=== PATIENT | male | born 1995 | race African-American/Black ===

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

== ENCOUNTER 2017-01-16 12:09 | Inpatient (IN) | payer BC, MEDICAID ==
[~2017-01-16] VITALS: Ht 172.7 cm; Wt 86.4 kg
[~2017-01-16 12:09] MED LIST: OLAN5TAB40 PO
[2017-01-16 12:37] LABS: BASOPHILS # (AUTO) 0.02 K/uL (0.00-0.20); BASOPHILS % (AUTO) 0.2 % (0.0-2.0); EOSINOPHILS # (AUTO) 0.03 K/uL (0.00-0.70); EOSINOPHILS % (AUTO) 0.31 % (1.0-6.0); HEMATOCRIT 46.7 % (41-53); LYMPHOCYTES # (AUTO) 0.7 K/uL (1.0-4.8); LYMPHOCYTES % (AUTO) 7.2 % (22.0-44.0); MEAN CORPUSCULAR HEMOGLOBIN 31.7 pg (26.0-34.0); MEAN CORPUSCULAR HGB CONC 34.2 G/dL (31.0-37.0); MEAN CORPUSCULAR VOLUME 93 fL (80-100); MONOCYTES # (AUTO) 0.4 K/uL (0.1-1.0); MONOCYTES % (AUTO) 4.1 % (2.0-9.0); NEUTROPHILS # (AUTO) 8.1 K/uL (1.8-7.7); PLATELET COUNT (AUTO) 272 K/uL (150-450); RED BLOOD CELL COUNT(AUTO) 5.04 MIL/uL (4.50-5.90); WHITE BLOOD COUNT (AUTO) 9.2 K/uL (4.5-11.0)
[2017-01-16 12:38] LABS: NEUTROPHILS % (AUTO) 88.2 % (40.0-70.0)
[2017-01-16] MEDS ORDERED: PERTUSS(ACELL),DIPH,TET VAC/PF 0.5 ML VIAL IM ONE (12:45)
[2017-01-16 12:49] LABS: ANION GAP 12 mmol/L (8-16); CALCIUM, TOTAL 8.9 mg/dL (8.8-10.5); CARBON DIOXIDE 24 mmol/L (22-29); CHLORIDE 101 mmol/L (98-107); CREATININE 1.07 mg/dL (0.60-1.30); GLOMERULAR FILTR. RATE CALC > 60 mL/min (>60); POTASSIUM 3.6 mmol/L (3.5-5.1); SODIUM SERUM 137 mmol/L (136-145); UREA NITROGEN, BLOOD 8 mg/dL (7-18)
[2017-01-16 12:54] LABS: ALANINE AMINOTRANSFERASE 29 U/L (12-78); ASPARTATE AMINOTRANSFERASE 30 U/L (15-37); BILIRUBIN,TOTAL 0.7 mg/dL (0.1-1.0)
[2017-01-16] MEDS ORDERED: HALOPERIDOL 5 MG TABLET PO PRN (13:15)
[2017-01-16] MEDS ORDERED: LORazepam 2 MG TABLET PO PRN (13:15)
[2017-01-16] MEDS ORDERED: ZOLPIDEM TARTRATE 10 MG TABLET PO PRN (13:15)
[2017-01-16 16:11] VITALS: BP 125/85
[2017-01-16] MEDS: OLANZapine 5 MG RAPDIS TABLET PO SCH (17:59)
[2017-01-17 07:07] VITALS: BP 123/80
[2017-01-17 08:21] LABS: BASOPHILS % (AUTO) 0.5 % (0.0-2.0); EOSINOPHILS % (AUTO) 1.3 % (1.0-6.0); HEMOGLOBIN 15.9 g/dL (13.5-17.5); LYMPHOCYTES # (AUTO) 0.8 K/uL (1.0-4.8); LYMPHOCYTES % (AUTO) 13.5 % (22.0-44.0); MEAN CORPUSCULAR HGB CONC 34.7 G/dL (31.0-37.0); MEAN CORPUSCULAR VOLUME 92 fL (80-100); MONOCYTES # (AUTO) 0.4 K/uL (0.1-1.0); MONOCYTES % (AUTO) 6.6 % (2.0-9.0); NEUTROPHILS # (AUTO) 4.9 K/uL (1.8-7.7); NEUTROPHILS % (AUTO) 78.1 % (40.0-70.0); PLATELET COUNT (AUTO) 276 K/uL (150-450); RED BLOOD CELL COUNT(AUTO) 4.99 MIL/uL (4.50-5.90); RED CELL DISTRIBUTION WIDTH 12.9 % (11.5-14.5); WHITE BLOOD COUNT (AUTO) 6.2 K/uL (4.5-11.0)
[2017-01-17 08:33] VITALS: BP 119/78
[2017-01-17 08:49] LABS: ALANINE AMINOTRANSFERASE 31 U/L (12-78); ALBUMIN 3.8 g/dL (3.4-5.0); ANION GAP 5 mmol/L (8-16); ASPARTATE AMINOTRANSFERASE 34 U/L (15-37); BILIRUBIN,TOTAL 1.2 mg/dL (0.1-1.0); CALCIUM, TOTAL 8.9 mg/dL (8.8-10.5); CARBON DIOXIDE 32 mmol/L (22-29); CHLORIDE 105 mmol/L (98-107); CREATININE 1.02 mg/dL (0.60-1.30); GLOMERULAR FILTR. RATE CALC > 60 mL/min (>60); POTASSIUM 4.5 mmol/L (3.5-5.1); SODIUM SERUM 142 mmol/L (136-145); THYROID STIMULATING HORMONE 0.37 uIU/mL (0.36-3.74); TOTAL PROTEIN, SERUM 6.5 g/dL (6.4-8.2); UREA NITROGEN, BLOOD 7 mg/dL (7-18)
[2017-01-17] MEDS: OLANZapine 5 MG RAPDIS TABLET PO SCH ×2 (09:00→16:50)
[2017-01-17] MEDS: BACITRACIN 28.4 GM OINTMENT TP SCH ×2 (09:00→16:50)
[2017-01-17 16:00] VITALS: BP 116/68
[2017-01-18 06:51] VITALS: BP 121/69
[2017-01-18 08:26] VITALS: BP 115/62
[2017-01-18] MEDS: BACITRACIN 28.4 GM OINTMENT TP SCH ×2 (08:29→16:15)
[2017-01-18] MEDS: OLANZapine 5 MG RAPDIS TABLET PO SCH ×2 (08:29→16:14)
[2017-01-18 16:00] VITALS: BP 128/68
[2017-01-19 06:30] VITALS: BP 111/85
[2017-01-19 08:00] VITALS: BP 136/70
[2017-01-19] MEDS: BACITRACIN 28.4 GM OINTMENT TP SCH (08:18)
[2017-01-19] MEDS: OLANZapine 5 MG RAPDIS TABLET PO SCH (08:18)
[2017-01-19] MEDS ORDERED: OLAN5TAB2 PO (12:40)
== END 2017-01-19 12:55 | disposition home or self-care (01) | DRG 885 ==
LOC: EMS 12:11 → B3A 14:22
PROVIDERS: ADMIT Psychiatry & Neurology Child & Adolescent Psychiatry; ATTEND Psychiatry & Neurology Child & Adolescent Psychiatry
PROC: 3E0234Z Introduction of Serum, Toxoid and Vaccine into Muscle, Percutaneous Approach (ICD-10-PCS; principal; 2017-01-16)
DX: F25.1 Schizoaffective disorder, depressive type (principal); R45.851 Suicidal ideations; Z78.1 Physical restraint status; F17.210 Nicotine dependence, cigarettes, uncomplicated; F12.10 Cannabis abuse, uncomplicated; F10.10 Alcohol abuse, uncomplicated; Y90.1 Blood alcohol level of 20-39 mg/100 ml; Z91.5 Personal history of self-harm; Z90.49 Acquired absence of other specified parts of digestive tract; Z23 Encounter for immunization
CPT/HCPCS: 84439; 84443; 90471; 90715; 99285; 99406; G0480